=== PATIENT | male | born 1955 | race Caucasian/White ===

== ENCOUNTER 2018-04-30 12:29 | Day surgery (SDC) | payer OTHER ==
[~2018-04-30] VITALS: Ht 172.7 cm; Wt 90.3 kg
[~2018-04-30 12:29] MED LIST: ALLO100T PO; AMLO5TAB4 PO; HYDR-3498 PO; LEVO500T48 PO; LOSA100T15 PO; SIMV20TA2 PO; TAMS0.4C2 PO
[2018-04-30] MEDS ORDERED: alfuzosin (13:14)
[2018-04-30] MEDS ORDERED: allopurinol (13:14)
[2018-04-30] MEDS ORDERED: losartan (13:14)
[2018-04-30] MEDS ORDERED: amlodipine (13:14)
[2018-04-30] MEDS ORDERED: finasteride (13:14)
[2018-04-30 13:17] VITALS: Ht 172.7 cm; Wt 90.3 kg
--- NOTE | 2018-04-30 13:30 | PREAC ---
Date/Time of Note Date/Time of Note DATE: 04/30/18 TIME: 13:28 Anesthesia Eval and Record Evaluation Time Pre-Procedure Interview DATE: 04/30/18 TIME: 13:28 Age 62 Sex male NPO: 8 hrs Preoperative diagnosis Screening Planned procedure Colonoscopy Past Medical History Past Medical History: Includes Cardio: HTN, Dyslipidemia, Other (hyperuricemia) Endo: Other (Hx of Hyperparathyroidism, it was removed 4 yrs ago uneventfully) GI: Obesity Surgery & Anesthesia Issues No known issue Meds Anticoagulation: No Beta Rolando within 24 hr: No Reason Beta Rolando not given: Pt. not on B-Rolando Active Scripts Hydrocodone Bit-Acetaminophen* ([place]*) 5-325 Mg Tab, 1 TAB PO Q4H PRN for PAIN, #30 TAB Prov:PERLITA BEAVER 12/30/14 Levofloxacin* (Levaquin*) 500 Mg Tablet, 500 MG PO DAILY, #5 TAB Prov:PERLITA BEAVER 12/30/14 Reported Medications [alfuzosin] No Conflict Check 04/30/18 [finasteride] No Conflict Check 04/30/18 [losartan] No Conflict Check 04/30/18 [allopurinol] No Conflict Check 04/30/18 [amlodipine] No Conflict Check 04/30/18 Losartan Potassium* (Losartan Potassium*) 100 Mg Tablet, 100 MG PO DAILY, TAB 12/27/14 Amlodipine Besylate* (Norvasc*) 5 Mg Tablet, 5 MG PO DAILY, TAB 12/27/14 Tamsulosin Hcl* (Tamsulosin Hcl*) 0.4 Mg Cap.er.24h, 0.4 MG PO DAILY, CAP 08/15/14 Simvastatin (Simvastatin) 20 Mg Tablet, 20 MG PO HS, TAB 08/15/14 Allopurinol* (Allopurinol*) 100 Mg Tablet, 150 MG PO DAILY, TAB 08/15/14 Meds reviewed: Yes Allergies Coded Allergies: NSAIDS (Non-Steroidal Anti-Inflamma (Verified Allergy, Intermediate, 04/30/18) aspirin (Verified Allergy, Unknown, 12/29/14) blood in urine Uncoded Allergies: all blood thinners (Adverse Reaction, Intermediate, 04/30/18) Allergies Reviewed: Yes Labs/Studies Labs Reviewed: Reviewed by anesthesiologist test: N/A Studies: ECG (n/a), CXR (n/a) Pre-procedure Exam Airway: Adequate mouth opening, Adequate thyromental dist Mallampati: Mallampati III Teeth: Normal Lung: Normal Heart: Normal ASA Physical Status ASA physical status: 3 Emergency: None Planned Anesthetic General/MAC: MAC Planned Pain Management Parenteral pain med Pre-operative Attestations Prior to commencing anesthesia and surgery, the patient was re-evaluated, there was verification of: *The patient's identity *The results of appropriate recent lab work and preoperative vital signs *The above evaluation not changing prior to induction *Anesthetic plan, risk benefits, alternative and complications discussed with patient/family; questions answered; patient/family understands, accepts and wishes to proceed. SATINDER LAY MD Apr 30, 2018 13:30
[2018-04-30 13:31] VITALS: BP 165/90; PULSE 79; RESP 18
[2018-04-30] MEDS ORDERED: PROPOFOL 40 ML ONE (13:57)
--- NOTE | 2018-04-30 13:57 | PAC ---
Date/Time of Note Date/Time of Note DATE: 04/30/18 TIME: 13:56 Post-Anesthesia Notes Post-Anesthesia Note Last documented vital signs T: 98.0 Activity: WNL Respiratory function: WNL Cardiovascular function: WNL Mental status: Baseline Pain reasonably controlled: Yes Hydration appropriate: Yes Nausea/Vomiting absent: Yes SATINDER LAY MD Apr 30, 2018 13:57
[2018-04-30 14:29] VITALS: BP 148/85; RESP 15
== END 2018-04-30 16:11 | disposition home or self-care (01) ==
LOC: GIL 12:29
PROVIDERS: ATTEND Internal Medicine Gastroenterology
DX: Z12.11 Encounter for screening for malignant neoplasm of colon (principal); D12.5 Benign neoplasm of sigmoid colon; K64.8 Other hemorrhoids; I10 Essential (primary) hypertension
CPT/HCPCS: 45380; Z7610; 88305